=== PATIENT | male | born 1970 | race African-American/Black ===

== ENCOUNTER 2016-10-22 13:08 | Emergency (ER) | payer MEDICAID, OTHER ==
[2016-10-22 15:15] LABS: MEAN CORPUSCULAR HEMOGLOBIN 31.6 pg (27.0-33.0); MEAN CORPUSCULAR HGB CONC 30.7 g/dl (32.0-36.5); MEAN CORPUSCULAR VOLUME 103.1 fl (80.0-96.0); RED CELL DISTRIBUTION WIDTH 13.4 % (11.5-14.5); WHITE BLOOD COUNT 10.2 K/mm3 (4.0-10.0)
[2016-10-22 15:32] LABS: ANION GAP 6 MEQ/L (8-16); BLOOD UREA NITROGEN 10 MG/DL (7-18); CARBON DIOXIDE LEVEL 30 MEQ/L (21-32); CHLORIDE LEVEL 110 MEQ/L (98-107); GLOMERULAR FILTRATION RATE > 60.0 (>60); GLUCOSE, FASTING 123 MG/DL (70-105); MAGNESIUM LEVEL 2.4 MG/DL (1.8-2.4); POTASSIUM SERUM 3.8 MEQ/L (3.5-5.1); SODIUM LEVEL 146 MEQ/L (136-145); T UPTAKE 35 % (33-40); THYROXINE (T4) 8.4 UG/DL (4.5-12.0)
--- NOTE | 2016-10-22 15:48 | REP ---
PA and lateral chest radiograph 10/22 17 Indication peripheral edema, hypertension Comparison made with PA and lateral chest 12/25/2012 at [facility] Findings: Cardiomediastinal silhouette is normal. Lungs are clear bilaterally. Bones and soft tissues are within normal limits. Impression no acute cardiopulmonary process or interval change Signed by Kathie Mccall MD 10/22/2016 03:39 P
--- NOTE | 2016-10-22 16:11 | EDDOCDS ---
Physician Documentation [facility] Name: Tom Baldwin Age: 46 yrs Sex: Male : 1970 Arrival Date: 10/22/2016 Time: 13:08 Bed 15 Private MD: No Pcp Disposition: 10/22/16 15:56 Discharged to Home/Self Care. Impression: Edema, not elsewhere classified - bilateral lower extremities. - Condition is Stable. - Prescriptions for Hydrochlorothiazide 25 mg Oral Tablet - take 1 tablet by ORAL route once daily for 5 days; 5 tablet. - Medication Reconciliation, Local Pharmacy Hours form. - Follow up: [facility]; When: Call to arrange an appointment; Reason: Recheck today's complaints, Continuance of care. - Problem is new. - Symptoms are unchanged. - Notes: Return to the ED for worsening swelling, chest pain, shortness of breath or any other concerns Historical: - Allergies: no known allergies; - Home Meds: 1. Vitamin D Oral ran out a while ago - PMHx: none; - PSHx: Hernia repair; shoulder (right); - Social history: Smoking status: Patient uses tobacco products, current every day smoker. No barriers to communication noted, The patient speaks fluent Prydeinig, Speaks appropriately for age. - Family history: Not pertinent. - : The pt / caregiver states he / she is not on anticoagulants. Home medication list is obtained from the patient. - Exposure Risk Screening:: None identified. Vital Signs: 10/22 13:12 BP 176 / 105 LA Sitting (auto/lg); Pulse 93; Resp 18 S; Temp 97.8(O); Pulse Ox 97% on mt4 R/A; Weight 108.86 kg / 240 lbs (R); Height 5 ft. 7 in. (170.18 cm) (R); Pain 4/10; 13:12 BP 205 / 108 RA Sitting (auto/lg); mt4 14:07 BP 178 / 88 (auto/); mb9 14:09 BP 178 / 82 LA Supine (man/lg); mb9 14:09 Pulse 86 MON; Pulse Ox 93% ; mb9 14:36 BP 182 / 86 (auto/); dsf 14:37 Pulse 82 MON; Pulse Ox 96% ; dsf 15:06 BP 187 / 91 (auto/); dsf 15:07 Pulse 82 MON; Pulse Ox 94% ; dsf 15:36 BP 176 / 83 (auto/); dsf 15:36 Pulse 80 MON; Pulse Ox 95% ; dsf 16:09 BP 170 / 80 (man/); Pulse 70; Resp 18; Temp 98.5(TE); Pulse Ox 96% on R/A; Pain 7/10; dsf 13:12 Body Mass Index 37.59 (108.86 kg, 170.18 cm) mt4 MDM: 14:05 Misc. Nursing Order ordered. le 14:06 Chest, 2 View (pa\E\lat) Ordered. EDMS 14:19 CBC Ordered. EDMS 14:19 BMP Ordered. EDMS 14:19 Magnesium Level Ordered. EDMS 14:19 Thyroid Profile Ordered. EDMS 14:19 UA Ordered. EDMS 14:19 ECG WITH READING ER PHYS+CARDIAG ordered. EDMS 14:24 Financial registration complete. mpb 14:27 Undo -Financial registration. mpb 14:27 Financial registration complete. lg 14:39 [facility] [place] Agreement was scanned into [employer] and attached to record. lg 15:52 CBC Reviewed. le 15:52 BMP Reviewed. le 15:52 UA Reviewed. le 15:52 Magnesium Level Reviewed. le 15:52 Thyroid Profile Reviewed. le Signatures: Dispatcher MedHost Avery Adam, Reg Reg lg Ameena Rosa,RN RN kr3 Sharmin Klein, BLOCK FEEDER BLOCK FEEDER Anna Pickard,RN RN dsf Robert Swain, Reg Reg mpb The chart was reviewed and I authenticate all verbal orders and agree with the evaluation and treatment provided.Attachments: 14:39 [facility] Payment Agreement lg MTDD
--- NOTE | 2016-10-22 16:11 | EDDOCDS ---
Nurse's Notes [facility] Name: Tom Baldwin Age: 46 yrs Sex: Male : 1970 Arrival Date: 10/22/2016 Time: 13:08 Bed 15 Private MD: No Pcp Diagnosis: Edema, not elsewhere classified-bilateral lower extremities Presentation: 10/22 13:19 Presenting complaint: Patient states: woke this AM with swollen feet. Reports has had kr3 swollen feet previously but not as severe. Started back to gym last week in attempt to loose weight. States no idea that had elevated blood pressure. Adult Sepsis Screening: The patient does not have new or worsening altered mentation. Patient's respiratory rate is less than 22. Systolic blood pressure is greater than 100. Patient has a qSOFA score of 0- Negative Sepsis Screen. Suicide/Homicide risk assessment- the patient denies having any suicidal and/or homicidal ideations and does not present with any other emotional, behavioral or mental health complaints. 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 Transition of care: patient was not received from another setting of care. 13:19 Acuity: JUDIT Level 3 kr3 13:19 Method Of Arrival: Walkin/Carried/Asstd kr3 Triage Assessment: 13:22 General: Appears in no apparent distress, comfortable, Behavior is cooperative. Pain: kr3 Location: chronic back pain Pain currently is 7 out of 10 on a pain scale. Pt Declines HIV testing. Neurological: Level of Consciousness is awake, alert. Respiratory: Respiratory effort is even, unlabored, Denies shortness of breath. Derm: Skin is normal, Reports swelling to both feet. Historical: - Allergies: no known allergies; - Home Meds: 1. Vitamin D Oral ran out a while ago - PMHx: none; - PSHx: Hernia repair; shoulder (right); - Social history: Smoking status: Patient uses tobacco products, current every day smoker. No barriers to communication noted, The patient speaks fluent Bolivian, Speaks appropriately for age. - Family history: Not pertinent. - : The pt / caregiver states he / she is not on anticoagulants. Home medication list is obtained from the patient. - Exposure Risk Screening:: None identified. Screenin:05 Screening information is obtained from the patient. Fall risk: No risks identified. dsf Assistance ADL's: requires no assistance with activities of daily living. Abuse/DV Screen: The patient / caregiver reports he/she is: not in a situation that causes fear, pain or injury. Nutritional screening: No deficits noted. Advance Directives: Currently, there is no health care proxy. home support is adequate. Assessment: 14:10 General: Appears to be sleeping. Behavior is appropriate for age, cooperative. Pain: mb9 Denies pain. Neurological: Level of Consciousness is alert, Oriented to person, place, time. Neurological: pt appears to fall asleep quickly when not engaged. pt reports, "I have sleep apnea and I don't sleep very well at night". . Cardiovascular: Heart tones S1 S2 present Edema is 1+ to left ankle, left foot, right ankle and right foot Pulses are all present. Rhythm is sinus rhythm No ectopy. Chest pain is denied. Respiratory: Airway is patent Respiratory effort is even, unlabored. 15:27 Adult Sepsis Screening: The patient does not have new or worsening altered mentation. dsf Patient's respiratory rate is less than 22. Systolic blood pressure is greater than 100. Patient has a qSOFA score of 0- Negative Sepsis Screen. General: Appears in no apparent distress, comfortable, Behavior is appropriate for age, cooperative. General: Appears in no apparent distress, comfortable, Behavior is appropriate for age, cooperative. Pain: Location: low back and right shoulder Pain currently is 7 out of 10 on a pain scale. Quality of pain is described as aching. Neurological: Level of Consciousness is awake, alert, Oriented to person, place, time. Cardiovascular: Capillary refill < 3 seconds Heart tones S1 S2 present Rhythm is sinus rhythm No ectopy. Chest pain is denied. Respiratory: Airway is patent Respiratory effort is even, unlabored, Respiratory pattern is regular, symmetrical, Breath sounds are clear bilaterally. GI: Abdomen is obese, Bowel sounds present X 4 quads. Abd is soft and non tender X 4 quads. Derm: Skin is pink, warm & dry. 16:06 General: Appears in no apparent distress, comfortable. Neurological: Level of dsf Consciousness is awake, alert. Cardiovascular: Capillary refill < 3 seconds. Respiratory: Airway is patent Respiratory effort is even, unlabored, Respiratory pattern is regular, symmetrical. Derm: Skin is pink, warm & dry. Vital Signs: 13:12 BP 176 / 105 LA Sitting (auto/lg); Pulse 93; Resp 18 S; Temp 97.8(O); Pulse Ox 97% on mt4 R/A; Weight 108.86 kg (R); Height 5 ft. 7 in. (170.18 cm) (R); Pain 4/10; 13:12 BP 205 / 108 RA Sitting (auto/lg); mt4 14:07 BP 178 / 88 (auto/); mb9 14:09 BP 178 / 82 LA Supine (man/lg); mb9 14:09 Pulse 86 MON; Pulse Ox 93% ; mb9 14:36 BP 182 / 86 (auto/); dsf 14:37 Pulse 82 MON; Pulse Ox 96% ; dsf 15:06 BP 187 / 91 (auto/); dsf 15:07 Pulse 82 MON; Pulse Ox 94% ; dsf 15:36 BP 176 / 83 (auto/); dsf 15:36 Pulse 80 MON; Pulse Ox 95% ; dsf 16:09 BP 170 / 80 (man/); Pulse 70; Resp 18; Temp 98.5(TE); Pulse Ox 96% on R/A; Pain 7/10; dsf 13:12 Body Mass Index 37.59 (108.86 kg, 170.18 cm) mt4 Vitals: 13:12 Log In Time: October 22, 2016 at 13:08. mt4 ED Course: 13:10 Patient visited by Loretta Lloyd. mt4 13:10 Patient moved to Waiting mt4 13:11 No Pcp is Private Physician. mt4 13:14 Patient moved to Pre RCE mt4 13:20 Triage Initiated kr3 13:35 Joanie Ashton,RN is Primary Nurse. dsf 13:35 Nory Vences, VERO is Primary Nurse. dsf 13:35 Patient moved to 15 dsf 14:04 Sharmin Klein FNP is PHCP. le 14:12 Patient visited by Robert Quintanilla RN. mb9 14:19 Patient visited by Sharmin Klein FNP. le 14:19 Patient visited by Sharmin Klein FNP. le 14:24 Patient moved to Radiology dsf 14:27 Patient moved to 15 dsf 14:39 Patient name changed from Tom\\S\\\\S\\Denny\\S\\ to Tom\\S\\ \\S\\Denny. EDMS 14:39 [facility] Payment Agreement was scanned into [employer] and attached to record. lg 14:40 EKG done. (by ED staff). Reviewed by Sharmin WILLIS. ct3 14:41 Patient visited by Kaylah Hu PCA. ct3 15:00 UA Sent. tk 15:28 Patient visited by Anna Ralph RN. dsf 15:56 [facility] is Referral Physician. le 16:05 The patient / caregiver is instructed regarding the plan of care and ED course. dsf 16:05 No IV's were initiated during this patient's visit. No procedures done that require dsf assistance. Order Results: Lab Order: CBC; SPEC'M 10/22/16 14:51 Test: WHITE BLOOD COUNT; Value: 10.2; Range: 4.0-10.0; Abnormal: Above high normal; Units: K/mm3; Status: F Test: RED BLOOD COUNT; Value: 4.59; Range: 4.30-6.10; Units: M/mm3; Status: F Test: HEMOGLOBIN; Value: 14.5; Range: 14.0-18.0; Units: g/dl; Status: F Test: HEMATOCRIT; Value: 47.3; Range: 42.0-52.0; Units: %; Status: F Test: MEAN CORPUSCULAR VOLUME; Value: 103.1; Range: 80.0-96.0; Abnormal: Above high normal; Units: fl; Status: F Test: MEAN CORPUSCULAR HEMOGLOBIN; Value: 31.6; Range: 27.0-33.0; Units: pg; Status: F Test: MEAN CORPUSCULAR HGB CONC; Value: 30.7; Range: 32.0-36.5; Abnormal: Below low normal; Units: g/dl; Status: F Test: RED CELL DISTRIBUTION WIDTH; Value: 13.4; Range: 11.5-14.5; Units: %; Status: F Test: PLATELET COUNT, AUTOMATED; Value: 198; Range: 150-450; Units: k/mm3; Status: F Lab Order: BMP; SPEC'M 10/22/16 14:51 Test: GLUCOSE, FASTING; Value: 123; Range: 70-105; Abnormal: Above high normal; Units: MG/DL; Status: F Test: BLOOD UREA NITROGEN; Value: 10; Range: 7-18; Units: MG/DL; Status: F Test: CREATININE FOR GFR; Value: 1.10; Range: 0.70-1.30; Units: MG/DL; Status: F Test: GLOMERULAR FILTRATION RATE; Value: > 60.0; Range: >60; Status: F Test: SODIUM LEVEL; Value: 146; Range: 136-145; Abnormal: Above high normal; Units: MEQ/L; Status: F Test: POTASSIUM SERUM; Value: 3.8; Range: 3.5-5.1; Units: MEQ/L; Status: F Test: CHLORIDE LEVEL; Value: 110; Range: 98-107; Abnormal: Above high normal; Units: MEQ/L; Status: F Test: CARBON DIOXIDE LEVEL; Value: 30; Range: 21-32; Units: MEQ/L; Status: F Test: ANION GAP; Value: 6; Range: 8-16; Abnormal: Below low normal; Units: MEQ/L; Status: F Test: CALCIUM LEVEL; Value: 8.0; Range: 8.5-10.1; Abnormal: Below low normal; Units: MG/DL; Status: F Test Note: ; Units are mL/min/1.73 m2 Chronic Kidney Disease Staging per NKF: Stage I & II GFR >=60 Normal to Mildly Decreased Stage III GFR 30-59 Moderately Decreased Stage IV GFR 15-29 Severely Decreased Stage V GFR <15 Very Little GFR Left ESRD GFR <15 on DIRECTOR OF PERSONNEL Lab Order: Magnesium Level; SPEC'M 10/22/16 14:51 Test: MAGNESIUM LEVEL; Value: 2.4; Range: 1.8-2.4; Units: MG/DL; Status: F Lab Order: Thyroid Profile; SPEC'M 10/22/16 14:51 Test: T UPTAKE; Value: 35; Range: 33-40; Units: %; Status: F Test: THYROXINE (T4); Value: 8.4; Range: 4.5-12.0; Units: UG/DL; Status: F Test: FREE THYROXINE INDEX; Value: 2.9; Range: 1.4-3.8; Units: %; Status: F Test: THYROID STIMULATING HORMONE; Value: 0.715; Range: 0.358-3.740; Units: uIU/ML; Status: F Lab Order: UA; SPEC'M 10/22/16 14:57 Test: APPEARANCE, URINE; Value: CLEAR; Range: CLEAR; Status: F Test: COLOR, URINE; Value: YELLOW; Range: YELLOW; Status: F Test: PH,URINE; Value: 5.0; Range: 5.0-9.0; Units: UNITS; Status: F Test: SPECIFIC GRAVITY URINE AUTO; Value: 1.025; Range: 1.002-1.035; Status: F Test: PROTEIN, URINE AUTO; Value: 1+; Range: NEGATIVE; Abnormal: Above high normal; Units: mg/dL; Status: F Test: GLUCOSE, URINE (UA) AUTO; Value: NEGATIVE; Range: NEGATIVE; Units: mg/dL; Status: F Test: KETONE, URINE AUTO; Value: TRACE; Range: NEGATIVE; Abnormal: Above high normal; Units: mg/dL; Status: F Test: UROBILINOGEN, URINE AUTO; Value: 4.0; Range: 0.0-2.0; Abnormal: Above high normal; Units: mg/dL; Status: F Test: BILIRUBIN, URINE AUTO; Value: NEGATIVE; Range: NEGATIVE; Status: F Test: NITRITE, URINE AUTO; Value: NEGATIVE; Range: NEGATIVE; Status: F Test: LEUKOCYTE ESTERASE, URINE AUTO; Value: 1+; Range: NEGATIVE; Abnormal: Above high normal; Status: F Test: BLOOD, URINE BLOOD; Value: 2+; Range: NEGATIVE; Abnormal: Above high normal; Status: F Test: WBC, URINE AUTO; Value: 12; Range: 0-3; Abnormal: Above high normal; Units: /HPF; Status: F Test: RBC, URINE AUTO; Value: 11; Range: 0-3; Abnormal: Above high normal; Units: /HPF; Status: F Test: BACTERIA, URINE AUTO; Value: 1+; Range: NEGATIVE; Abnormal: Above high normal; Status: F Test: SQUAMOUS EPITHELIAL CELL UR AU; Value: 1; Range: 0-6; Units: /HPF; Status: F Test: MUCUS, URINE; Value: SMALL; Range: NEGATIVE; Status: F Test: HYALINE CAST, URINE AUTO; Value: 0; Range: 0-1; Units: /LPF; Status: F Outcome: 15:56 Discharge ordered by Provider. le 16:05 Discharge Assessment: Patient awake, alert and oriented x 3. No cognitive and/or dsf functional deficits noted. Patient verbalized understanding of disposition instructions. patient administered narcotics - no. The following High Risk Discharge criteria are identified: None. Discharged to home ambulatory. Condition: stable. Discharge instructions given to patient, Instructed on discharge instructions, follow up and referral plans. medication usage, Demonstrated understanding of instructions, medications, Pt was receptive of discharge instructions/ teaching. Prescriptions given X 1. No special radiology studies were completed. Property sent home with patient. 16:09 Patient left the ED. dsf Signatures: Dispatcher MedHost EDMS Avery Nassar, Reg Reg lg Ameena Rosa,RN RN kr3 Sharmin Klein, COMMUNICATION COORDINATOR COMMUNICATION COORDINATOR Loretta Chavis mt4 Kaylah Hu, ASSISTANT ANALYST ASSISTANT ANALYST ct3 Anna Ralph RN RN dsf Robert Quintanilla,RN RN mb9 Shayne Hartley Corrections: (The following items were deleted from the chart) 13:24 13:19 Presenting complaint: Patient states: woke this AM with swollen feet. Reports has kr3 had swollen feet previously but not as severe. kr3 MTDD
--- NOTE | 2016-10-23 07:16 | ECGEPIP ---
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
--- NOTE | 2016-10-24 17:11 | EDDOCDS ---
Physician Documentation [facility] Name: Tom Baldwin Age: 46 yrs Sex: Male : 1970 Arrival Date: 10/22/2016 Time: 13:08 Bed 15 Private MD: No Pcp Disposition: 10/22/16 15:56 Discharged to Home/Self Care. Impression: Edema, not elsewhere classified - bilateral lower extremities. - Condition is Stable. - Prescriptions for Hydrochlorothiazide 25 mg Oral Tablet - take 1 tablet by ORAL route once daily for 5 days; 5 tablet. - Medication Reconciliation, Local Pharmacy Hours form. - Follow up: [facility]; When: Call to arrange an appointment; Reason: Recheck today's complaints, Continuance of care. - Problem is new. - Symptoms are unchanged. - Notes: Return to the ED for worsening swelling, chest pain, shortness of breath or any other concerns Historical: - Allergies: no known allergies; - Home Meds: 1. Vitamin D Oral ran out a while ago - PMHx: none; - PSHx: Hernia repair; shoulder (right); - Social history: Smoking status: Patient uses tobacco products, current every day smoker. No barriers to communication noted, The patient speaks fluent Rwandan, Speaks appropriately for age. - Family history: Not pertinent. - : The pt / caregiver states he / she is not on anticoagulants. Home medication list is obtained from the patient. - Exposure Risk Screening:: None identified. Vital Signs: 10/22 13:12 BP 176 / 105 LA Sitting (auto/lg); Pulse 93; Resp 18 S; Temp 97.8(O); Pulse Ox 97% on mt4 R/A; Weight 108.86 kg / 240 lbs (R); Height 5 ft. 7 in. (170.18 cm) (R); Pain 4/10; 13:12 BP 205 / 108 RA Sitting (auto/lg); mt4 14:07 BP 178 / 88 (auto/); mb9 14:09 BP 178 / 82 LA Supine (man/lg); mb9 14:09 Pulse 86 MON; Pulse Ox 93% ; mb9 14:36 BP 182 / 86 (auto/); dsf 14:37 Pulse 82 MON; Pulse Ox 96% ; dsf 15:06 BP 187 / 91 (auto/); dsf 15:07 Pulse 82 MON; Pulse Ox 94% ; dsf 15:36 BP 176 / 83 (auto/); dsf 15:36 Pulse 80 MON; Pulse Ox 95% ; dsf 16:09 BP 170 / 80 (man/); Pulse 70; Resp 18; Temp 98.5(TE); Pulse Ox 96% on R/A; Pain 7/10; dsf 13:12 Body Mass Index 37.59 (108.86 kg, 170.18 cm) mt4 MDM: 14:05 Misc. Nursing Order ordered. le 14:06 Chest, 2 View (pa\E\lat) Ordered. EDMS 14:19 CBC Ordered. EDMS 14:19 BMP Ordered. EDMS 14:19 Magnesium Level Ordered. EDMS 14:19 Thyroid Profile Ordered. EDMS 14:19 UA Ordered. EDMS 14:19 ECG WITH READING ER PHYS+CARDIAG ordered. EDMS 14:24 Financial registration complete. mpb 14:27 Undo -Financial registration. mpb 14:27 Financial registration complete. 14:39 [facility] Payment Agreement was scanned into [employer] and attached to record. lg 15:52 CBC Reviewed. le 15:52 BMP Reviewed. le 15:52 UA Reviewed. le 15:52 Magnesium Level Reviewed. le 15:52 Thyroid Profile Reviewed. le 22:22 T-Sheet-- Draft Copy was scanned into K[employer] and attached to record. [facility] 10/23 10:48 ECG/EKG was scanned into K[employer] and attached to record. gb Signatures: Dispatcher MedHost EDMS Gena Stone, Reg Reg gb Avery Nassar, Reg Reg lg Ameena Rosa,RN RN kr3 Sharmin Klein, ANALYZER SALES ANALYZER SALES Anna Pickard,RN RN dsf Robert Swain, Reg Reg mpb Barbara Rios The chart was reviewed and I authenticate all verbal orders and agree with the evaluation and treatment provided.Attachments: 10/22 14:39 [facility] Payment Agreement lg 22:22 T-Sheet-- Draft Copy [facility] 10/23 10:48 ECG/EKG gb Chart Complete MTDD
--- NOTE | 2016-10-24 17:11 | EDDOCDS ---
Physician Documentation [facility] Name: Tom Baldwin Age: 46 yrs Sex: Male : 1970 Arrival Date: 10/22/2016 Time: 13:08 Bed 15 Private MD: No Pcp Disposition: 10/22/16 15:56 Discharged to Home/Self Care. Impression: Edema, not elsewhere classified - bilateral lower extremities. - Condition is Stable. - Prescriptions for Hydrochlorothiazide 25 mg Oral Tablet - take 1 tablet by ORAL route once daily for 5 days; 5 tablet. - Medication Reconciliation, Local Pharmacy Hours form. - Follow up: [facility] [place]; When: Call to arrange an appointment; Reason: Recheck today's complaints, Continuance of care. - Problem is new. - Symptoms are unchanged. - Notes: Return to the ED for worsening swelling, chest pain, shortness of breath or any other concerns Historical: - Allergies: no known allergies; - Home Meds: 1. Vitamin D Oral ran out a while ago - PMHx: none; - PSHx: Hernia repair; shoulder (right); - Social history: Smoking status: Patient uses tobacco products, current every day smoker. No barriers to communication noted, The patient speaks fluent Sao Tomean, Speaks appropriately for age. - Family history: Not pertinent. - : The pt / caregiver states he / she is not on anticoagulants. Home medication list is obtained from the patient. - Exposure Risk Screening:: None identified. Vital Signs: 10/22 13:12 BP 176 / 105 LA Sitting (auto/lg); Pulse 93; Resp 18 S; Temp 97.8(O); Pulse Ox 97% on mt4 R/A; Weight 108.86 kg / 240 lbs (R); Height 5 ft. 7 in. (170.18 cm) (R); Pain 4/10; 13:12 BP 205 / 108 RA Sitting (auto/lg); mt4 14:07 BP 178 / 88 (auto/); mb9 14:09 BP 178 / 82 LA Supine (man/lg); mb9 14:09 Pulse 86 MON; Pulse Ox 93% ; mb9 14:36 BP 182 / 86 (auto/); dsf 14:37 Pulse 82 MON; Pulse Ox 96% ; dsf 15:06 BP 187 / 91 (auto/); dsf 15:07 Pulse 82 MON; Pulse Ox 94% ; dsf 15:36 BP 176 / 83 (auto/); dsf 15:36 Pulse 80 MON; Pulse Ox 95% ; dsf 16:09 BP 170 / 80 (man/); Pulse 70; Resp 18; Temp 98.5(TE); Pulse Ox 96% on R/A; Pain 7/10; dsf 13:12 Body Mass Index 37.59 (108.86 kg, 170.18 cm) mt4 MDM: 14:05 Misc. Nursing Order ordered. le 14:06 Chest, 2 View (pa\E\lat) Ordered. EDMS 14:19 CBC Ordered. EDMS 14:19 BMP Ordered. EDMS 14:19 Magnesium Level Ordered. EDMS 14:19 Thyroid Profile Ordered. EDMS 14:19 UA Ordered. EDMS 14:19 ECG WITH READING ER PHYS+CARDIAG ordered. EDMS 14:24 Financial registration complete. mpb 14:27 Undo -Financial registration. mpb 14:27 Financial registration complete. 14:39 [facility] Payment Agreement was scanned into [employer] and attached to record. lg 15:52 CBC Reviewed. le 15:52 BMP Reviewed. le 15:52 UA Reviewed. le 15:52 Magnesium Level Reviewed. le 15:52 Thyroid Profile Reviewed. le 22:22 T-Sheet-- Draft Copy was scanned into [employer] and attached to record. [facility] 10/23 10:48 ECG/EKG was scanned into [employer] and attached to record. gb Signatures: Dispatcher MedHost EDMS Gena Stone, Reg Reg gb Avery Nassar, Reg Reg lg Ameena Rosa,RN RN kr3 Sharmin Klein, APPLICATIONS ENGINEER APPLICATIONS ENGINEER Anna Pickard,RN RN dsf Robert Swain, Reg Reg mpb Barbara Rios The chart was reviewed and I authenticate all verbal orders and agree with the evaluation and treatment provided.Attachments: 10/22 14:39 [facility] Payment Agreement lg 22:22 T-Sheet-- Draft Copy [facility] 10/23 10:48 ECG/EKG gb Chart Complete MTDD
--- NOTE | 2016-10-24 17:12 | EDDOCDS ---
Nurse's Notes [facility] Name: Daja Abdul Age: 46 yrs Sex: Male : 1970 Arrival Date: 10/22/2016 Time: 13:08 Bed 15 Private MD: No Pcp Diagnosis: Edema, not elsewhere classified-bilateral lower extremities Presentation: 10/22 13:19 Presenting complaint: Patient states: woke this AM with swollen feet. Reports has had kr3 swollen feet previously but not as severe. Started back to gym last week in attempt to loose weight. States no idea that had elevated blood pressure. Adult Sepsis Screening: The patient does not have new or worsening altered mentation. Patient's respiratory rate is less than 22. Systolic blood pressure is greater than 100. Patient has a qSOFA score of 0- Negative Sepsis Screen. Suicide/Homicide risk assessment- the patient denies having any suicidal and/or homicidal ideations and does not present with any other emotional, behavioral or mental health complaints. 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 Transition of care: patient was not received from another setting of care. 13:19 Acuity: JUDIT Level 3 kr3 13:19 Method Of Arrival: Walkin/Carried/Asstd kr3 Triage Assessment: 13:22 General: Appears in no apparent distress, comfortable, Behavior is cooperative. Pain: kr3 Location: chronic back pain Pain currently is 7 out of 10 on a pain scale. Pt Declines HIV testing. Neurological: Level of Consciousness is awake, alert. Respiratory: Respiratory effort is even, unlabored, Denies shortness of breath. Derm: Skin is normal, Reports swelling to both feet. Historical: - Allergies: no known allergies; - Home Meds: 1. Vitamin D Oral ran out a while ago - PMHx: none; - PSHx: Hernia repair; shoulder (right); - Social history: Smoking status: Patient uses tobacco products, current every day smoker. No barriers to communication noted, The patient speaks fluent Algerian, Speaks appropriately for age. - Family history: Not pertinent. - : The pt / caregiver states he / she is not on anticoagulants. Home medication list is obtained from the patient. - Exposure Risk Screening:: None identified. Screenin:05 Screening information is obtained from the patient. Fall risk: No risks identified. dsf Assistance ADL's: requires no assistance with activities of daily living. Abuse/DV Screen: The patient / caregiver reports he/she is: not in a situation that causes fear, pain or injury. Nutritional screening: No deficits noted. Advance Directives: Currently, there is no health care proxy. home support is adequate. Assessment: 14:10 General: Appears to be sleeping. Behavior is appropriate for age, cooperative. Pain: mb9 Denies pain. Neurological: Level of Consciousness is alert, Oriented to person, place, time. Neurological: pt appears to fall asleep quickly when not engaged. pt reports, "I have sleep apnea and I don't sleep very well at night". . Cardiovascular: Heart tones S1 S2 present Edema is 1+ to left ankle, left foot, right ankle and right foot Pulses are all present. Rhythm is sinus rhythm No ectopy. Chest pain is denied. Respiratory: Airway is patent Respiratory effort is even, unlabored. 15:27 Adult Sepsis Screening: The patient does not have new or worsening altered mentation. dsf Patient's respiratory rate is less than 22. Systolic blood pressure is greater than 100. Patient has a qSOFA score of 0- Negative Sepsis Screen. General: Appears in no apparent distress, comfortable, Behavior is appropriate for age, cooperative. General: Appears in no apparent distress, comfortable, Behavior is appropriate for age, cooperative. Pain: Location: low back and right shoulder Pain currently is 7 out of 10 on a pain scale. Quality of pain is described as aching. Neurological: Level of Consciousness is awake, alert, Oriented to person, place, time. Cardiovascular: Capillary refill < 3 seconds Heart tones S1 S2 present Rhythm is sinus rhythm No ectopy. Chest pain is denied. Respiratory: Airway is patent Respiratory effort is even, unlabored, Respiratory pattern is regular, symmetrical, Breath sounds are clear bilaterally. GI: Abdomen is obese, Bowel sounds present X 4 quads. Abd is soft and non tender X 4 quads. Derm: Skin is pink, warm & dry. 16:06 General: Appears in no apparent distress, comfortable. Neurological: Level of dsf Consciousness is awake, alert. Cardiovascular: Capillary refill < 3 seconds. Respiratory: Airway is patent Respiratory effort is even, unlabored, Respiratory pattern is regular, symmetrical. Derm: Skin is pink, warm & dry. Vital Signs: 13:12 BP 176 / 105 LA Sitting (auto/lg); Pulse 93; Resp 18 S; Temp 97.8(O); Pulse Ox 97% on mt4 R/A; Weight 108.86 kg (R); Height 5 ft. 7 in. (170.18 cm) (R); Pain 4/10; 13:12 BP 205 / 108 RA Sitting (auto/lg); mt4 14:07 BP 178 / 88 (auto/); mb9 14:09 BP 178 / 82 LA Supine (man/lg); mb9 14:09 Pulse 86 MON; Pulse Ox 93% ; mb9 14:36 BP 182 / 86 (auto/); dsf 14:37 Pulse 82 MON; Pulse Ox 96% ; dsf 15:06 BP 187 / 91 (auto/); dsf 15:07 Pulse 82 MON; Pulse Ox 94% ; dsf 15:36 BP 176 / 83 (auto/); dsf 15:36 Pulse 80 MON; Pulse Ox 95% ; dsf 16:09 BP 170 / 80 (man/); Pulse 70; Resp 18; Temp 98.5(TE); Pulse Ox 96% on R/A; Pain 7/10; dsf 13:12 Body Mass Index 37.59 (108.86 kg, 170.18 cm) mt4 Vitals: 13:12 Log In Time: October 22, 2016 at 13:08. mt4 ED Course: 13:10 Patient visited by Loretta Lloyd. mt4 13:10 Patient moved to Waiting mt4 13:11 No Pcp is Private Physician. mt4 13:14 Patient moved to Pre RCE mt4 13:20 Triage Initiated kr3 13:35 Joanie Ashton,RN is Primary Nurse. dsf 13:35 Nory Vences, VERO is Primary Nurse. dsf 13:35 Patient moved to 15 dsf 14:04 Sharmin Klein FNP is PHCP. le 14:12 Patient visited by Robert Quintanilla RN. mb9 14:19 Patient visited by Sharmin Klein FNP. le 14:19 Patient visited by Sharmin Klein FNP. le 14:24 Patient moved to Radiology dsf 14:27 Patient moved to 15 dsf 14:39 Patient name changed from Daja\\S\\\\S\\Denny\\S\\ to Daja\\S\\ \\S\\Denny. EDMS 14:39 [facility] Payment Agreement was scanned into [employer] and attached to record. lg 14:40 EKG done. (by ED staff). Reviewed by Sharmin WILLIS. ct3 14:41 Patient visited by Kaylah Hu PCA. ct3 15:00 UA Sent. tk 15:28 Patient visited by Anna Ralph RN. dsf 15:56 [facility] is Referral Physician. le 16:05 The patient / caregiver is instructed regarding the plan of care and ED course. dsf 16:05 No IV's were initiated during this patient's visit. No procedures done that require dsf assistance. 16:11 Chest, 2 View (pa\\E\\lat) Returned. EDMS 22:22 T-Sheet-- Draft Copy was scanned into [employer] and attached to record. klr 10/23 07:28 EKG-ADULT Returned. EDMS 10:48 ECG/EKG was scanned into [employer] and attached to record. gb Order Results: Lab Order: CBC; SPEC'M 10/22/16 14:51 Test: WHITE BLOOD COUNT; Value: 10.2; Range: 4.0-10.0; Abnormal: Above high normal; Units: K/mm3; Status: F Test: RED BLOOD COUNT; Value: 4.59; Range: 4.30-6.10; Units: M/mm3; Status: F Test: HEMOGLOBIN; Value: 14.5; Range: 14.0-18.0; Units: g/dl; Status: F Test: HEMATOCRIT; Value: 47.3; Range: 42.0-52.0; Units: %; Status: F Test: MEAN CORPUSCULAR VOLUME; Value: 103.1; Range: 80.0-96.0; Abnormal: Above high normal; Units: fl; Status: F Test: MEAN CORPUSCULAR HEMOGLOBIN; Value: 31.6; Range: 27.0-33.0; Units: pg; Status: F Test: MEAN CORPUSCULAR HGB CONC; Value: 30.7; Range: 32.0-36.5; Abnormal: Below low normal; Units: g/dl; Status: F Test: RED CELL DISTRIBUTION WIDTH; Value: 13.4; Range: 11.5-14.5; Units: %; Status: F Test: PLATELET COUNT, AUTOMATED; Value: 198; Range: 150-450; Units: k/mm3; Status: F Lab Order: BMP; 10/22/16 14:51 Test: GLUCOSE, FASTING; Value: 123; Range: 70-105; Abnormal: Above high normal; Units: MG/DL; Status: F Test: BLOOD UREA NITROGEN; Value: 10; Range: 7-18; Units: MG/DL; Status: F Test: CREATININE FOR GFR; Value: 1.10; Range: 0.70-1.30; Units: MG/DL; Status: F Test: GLOMERULAR FILTRATION RATE; Value: > 60.0; Range: >60; Status: F Test: SODIUM LEVEL; Value: 146; Range: 136-145; Abnormal: Above high normal; Units: MEQ/L; Status: F Test: POTASSIUM SERUM; Value: 3.8; Range: 3.5-5.1; Units: MEQ/L; Status: F Test: CHLORIDE LEVEL; Value: 110; Range: 98-107; Abnormal: Above high normal; Units: MEQ/L; Status: F Test: CARBON DIOXIDE LEVEL; Value: 30; Range: 21-32; Units: MEQ/L; Status: F Test: ANION GAP; Value: 6; Range: 8-16; Abnormal: Below low normal; Units: MEQ/L; Status: F Test: CALCIUM LEVEL; Value: 8.0; Range: 8.5-10.1; Abnormal: Below low normal; Units: MG/DL; Status: F Test Note: ; Units are mL/min/1.73 m2 Chronic Kidney Disease Staging per NKF: Stage I & II GFR >=60 Normal to Mildly Decreased Stage III GFR 30-59 Moderately Decreased Stage IV GFR 15-29 Severely Decreased Stage V GFR <15 Very Little GFR Left ESRD GFR <15 on GEOGRAPHIC INFORMATION SCIENTIST Lab Order: Magnesium Level; 10/22/16 14:51 Test: MAGNESIUM LEVEL; Value: 2.4; Range: 1.8-2.4; Units: MG/DL; Status: F Lab Order: Thyroid Profile; 10/22/16 14:51 Test: T UPTAKE; Value: 35; Range: 33-40; Units: %; Status: F Test: THYROXINE (T4); Value: 8.4; Range: 4.5-12.0; Units: UG/DL; Status: F Test: FREE THYROXINE INDEX; Value: 2.9; Range: 1.4-3.8; Units: %; Status: F Test: THYROID STIMULATING HORMONE; Value: 0.715; Range: 0.358-3.740; Units: uIU/ML; Status: F Lab Order: UA; SPEC'M 10/22/16 14:57 Test: APPEARANCE, URINE; Value: CLEAR; Range: CLEAR; Status: F Test: COLOR, URINE; Value: YELLOW; Range: YELLOW; Status: F Test: PH,URINE; Value: 5.0; Range: 5.0-9.0; Units: UNITS; Status: F Test: SPECIFIC GRAVITY URINE AUTO; Value: 1.025; Range: 1.002-1.035; Status: F Test: PROTEIN, URINE AUTO; Value: 1+; Range: NEGATIVE; Abnormal: Above high normal; Units: mg/dL; Status: F Test: GLUCOSE, URINE (UA) AUTO; Value: NEGATIVE; Range: NEGATIVE; Units: mg/dL; Status: F Test: KETONE, URINE AUTO; Value: TRACE; Range: NEGATIVE; Abnormal: Above high normal; Units: mg/dL; Status: F Test: UROBILINOGEN, URINE AUTO; Value: 4.0; Range: 0.0-2.0; Abnormal: Above high normal; Units: mg/dL; Status: F Test: BILIRUBIN, URINE AUTO; Value: NEGATIVE; Range: NEGATIVE; Status: F Test: NITRITE, URINE AUTO; Value: NEGATIVE; Range: NEGATIVE; Status: F Test: LEUKOCYTE ESTERASE, URINE AUTO; Value: 1+; Range: NEGATIVE; Abnormal: Above high normal; Status: F Test: BLOOD, URINE BLOOD; Value: 2+; Range: NEGATIVE; Abnormal: Above high normal; Status: F Test: WBC, URINE AUTO; Value: 12; Range: 0-3; Abnormal: Above high normal; Units: /HPF; Status: F Test: RBC, URINE AUTO; Value: 11; Range: 0-3; Abnormal: Above high normal; Units: /HPF; Status: F Test: BACTERIA, URINE AUTO; Value: 1+; Range: NEGATIVE; Abnormal: Above high normal; Status: F Test: SQUAMOUS EPITHELIAL CELL UR AU; Value: 1; Range: 0-6; Units: /HPF; Status: F Test: MUCUS, URINE; Value: SMALL; Range: NEGATIVE; Status: F Test: HYALINE CAST, URINE AUTO; Value: 0; Range: 0-1; Units: /LPF; Status: F Radiology Order: Chest, 2 View (pa\\E\\lat) Test: Chest, 2 View (pa\\E\\lat) REASON FOR EXAMINATION: periph edema, HTN; PA and lateral chest radiograph 10/22 17; ; Indication peripheral edema, hypertension; ; Comparison made with PA and lateral chest 12/25/2012 at [facility]; ; Findings: Cardiomediastinal silhouette is normal. 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 le 16:05 Discharge Assessment: Patient awake, alert and oriented x 3. No cognitive and/or dsf functional deficits noted. Patient verbalized understanding of disposition instructions. patient administered narcotics - no. The following High Risk Discharge criteria are identified: None. Discharged to home ambulatory. Condition: stable. Discharge instructions given to patient, Instructed on discharge instructions, follow up and referral plans. medication usage, Demonstrated understanding of instructions, medications, Pt was receptive of discharge instructions/ teaching. Prescriptions given X 1. No special radiology studies were completed. Property sent home with patient. 16:09 Patient left the ED. dsf Signatures: Dispatcher [employer] EDMS Gena Stone, Reg Reg gb Avery Nassar, Reg Reg lg Ameena Rosa,RN RN kr3 Sharmin Klein, PODIATRY TEACHER PODIATRY TEACHER cecily Lloyd, Loretta mt4 Kaylah Hu, CHURCH OFFICIAL CHURCH OFFICIAL ct3 Anna Ralph RN RN dsf Robert Quintanilla RN RN mb9 Shayne Hartley Kathie klr Corrections: (The following items were deleted from the chart) 13:24 13:19 Presenting complaint: Patient states: woke this AM with swollen feet. Reports has kr3 had swollen feet previously but not as severe. kr3 Chart Complete MTDD
== END 2016-10-22 16:09 | disposition home or self-care (01) ==
LOC: M ED 13:08
DX: R60.0 Localized edema (principal); F17.210 Nicotine dependence, cigarettes, uncomplicated

== ENCOUNTER 2019-02-25 12:26 | Emergency (ER) | payer OTHER ==
[~2019-02-25] VITALS: Ht 172.7 cm; Wt 136.2 kg
[2019-02-25 12:27] VITALS: BP 161/83
[2019-02-25] MEDS ORDERED: LISI40TA PO (12:41)
[2019-02-25] MEDS ORDERED: AMLO10TA5 PO (12:41)
[2019-02-25] MEDS ORDERED: CARV12.5 PO (12:41)
--- NOTE | 2019-02-25 13:38 | REP ---
Clinical: Acute chest pain . Comparison: 10/22/2016 . Technique: PA and lateral. Findings: The mediastinum and cardiac silhouette are normal. The lung arellano are clear and without acute consolidation, effusion, or pneumothorax. The skeletal structures are intact and normal. Impression: 1. No acute cardiopulmonary process. Electronically Signed by Casey Nicholson MD 02/25/2019 01:30 P
[2019-02-25] MEDS ORDERED: FUROSEMIDE 40 MG TAB PO ONE (14:00)
[2019-02-25 14:03] LABS: BASO # 0.1 10^3/uL (0.0-0.2); BASO % 0.6 % (0.0-1.0); EOS # 0.3 10^3/uL (0.0-0.50); EOS % 2.5 % (0.0-3.0); HEMATOCRIT 44.5 % (42.0-52.0); HEMOGLOBIN 14.7 g/dl (13.5-17.5); LYMPH # 4.2 10^3/uL (1.5-4.5); MEAN CORPUSCULAR HEMOGLOBIN 31.9 pg (27.0-33.0); MEAN CORPUSCULAR VOLUME 96.5 fl (80.0-96.0); MONO # 1.2 10^3/uL (0.0-0.8); NEUTROPHILS # 7.2 10^3/uL (1.8-7.7); NEUTROPHILS % 54.9 % (36.0-66.0); PLATELET COUNT, AUTOMATED 260 10^3/uL (150-450); RED BLOOD COUNT 4.61 10^6/uL (4.30-6.10); WHITE BLOOD COUNT 13.1 10^3/uL (4.0-10.0)
[2019-02-25 14:34] LABS: ALBUMIN 3.5 GM/DL (3.2-5.2); ALT/SGPT 14 U/L (12-78); BILIRUBIN,TOTAL 0.3 MG/DL (0.2-1.0); BLOOD UREA NITROGEN 11 MG/DL (7-18); CALCIUM LEVEL 8.3 MG/DL (8.5-10.1); CARBON DIOXIDE LEVEL 29 MEQ/L (21-32); CHLORIDE LEVEL 109 MEQ/L (98-107); CREATININE FOR GFR 0.98 MG/DL (0.70-1.30); GLOMERULAR FILTRATION RATE > 60.0 (>60); GLUCOSE, FASTING 92 MG/DL (70-100); NT-PRO BNP 16 PG/ML (<125); POTASSIUM SERUM 3.7 MEQ/L (3.5-5.1); SODIUM LEVEL 144 MEQ/L (136-145); TOTAL PROTEIN 7.1 GM/DL (6.4-8.2)
[2019-02-25] MEDS ORDERED: LASI20TA3 PO (14:53)
== END 2019-02-25 14:55 | disposition left against medical advice (07) ==
LOC: M ED 12:26
DX: I10 Essential (primary) hypertension (principal); R60.0 Localized edema; Z79.899 Other long term (current) drug therapy; F17.210 Nicotine dependence, cigarettes, uncomplicated

== ENCOUNTER 2019-11-10 03:04 | Emergency (ER) | payer OTHER ==
[~2019-11-10] VITALS: Ht 170.2 cm; Wt 122.7 kg
[~2019-11-10 03:04] MED LIST: AMLO10TA5 PO; CARV12.5 PO; LASI20TA3 PO; LISI40TA PO
[2019-11-10] MEDS ORDERED: IBUPROFEN 800 MG TAB PO ONE (06:30)
[2019-11-10] MEDS ORDERED: ACETAMINOPHEN 325 MG TAB PO ONE (06:30)
[2019-11-10 07:01] VITALS: BP 149/80
--- NOTE | 2019-11-10 07:51 | REP ---
Clinical: Pain. Fall. Technique: Neutral and frog lateral views of the right hip. Findings: Generalized age-related changes are appreciated. No acute fracture or dislocation. The surrounding soft tissues are unremarkable. Impression: No acute fracture or dislocation. Electronically Signed by Casey Nicholson MD 11/10/2019 07:42 A
== END 2019-11-10 07:02 | disposition home or self-care (01) ==
LOC: M ED 03:04
DX: S76.011A Strain of muscle, fascia and tendon of right hip, initial encounter (principal); W00.0XXA Fall on same level due to ice and snow, initial encounter; Y92.018 Other place in single-family (private) house as the place of occurrence of the external cause; I10 Essential (primary) hypertension; G47.30 Sleep apnea, unspecified; Z79.899 Other long term (current) drug therapy

== ENCOUNTER 2020-03-07 10:02 | Emergency (ER) | payer OTHER ==
[~2020-03-07] VITALS: Ht 172.7 cm; Wt 137.7 kg
[2020-03-07] MEDS ORDERED: KETOROLAC 60MG 2ML VIAL IM ONE (11:00)
[2020-03-07 11:24] VITALS: BP 174/90
[2020-03-07] MEDS ORDERED: POLYTRIM OPTH DROPS 10ML OS SCH (12:00)
== END 2020-03-07 11:29 | disposition home or self-care (01) ==
LOC: M ED 10:02
DX: H11.32 Conjunctival hemorrhage, left eye (principal); M25.511 Pain in right shoulder
CPT/HCPCS: 96360; 96372; 99283; J1885

== ENCOUNTER → 2020-10-12 | Outpatient (CLI) | payer SELFPAY ==
[~2020-10-12] MED LIST changes: -AMLO10TA5 PO; +AMLO1TAB25 PO
== END ==
LOC: M LABSMTC 10:39
PROVIDERS: ATTEND Pediatrics
DX: Z20.828 Contact with and (suspected) exposure to other viral communicable diseases (principal)

== ENCOUNTER → 2021-02-14 | Outpatient (CLI) | payer OTHER ==
[~2021-02-14] MED LIST changes: -LISI40TA PO; +LISI40TA4 PO
== END ==
LOC: M LABSMTC 09:49
PROVIDERS: ATTEND Pediatrics
DX: Z20.822 Contact with and (suspected) exposure to COVID-19 (principal)

== ENCOUNTER 2021-05-07 06:39 | Emergency (ER) | payer OTHER ==
[~2021-05-07] VITALS: Ht 170.2 cm; Wt 145.8 kg
[2021-05-07] MEDS ORDERED: ACETAMINOPHEN 325 MG TAB PO ONE (08:50)
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
[2021-05-07] MEDS ORDERED: lisinopriL 40 MG TAB PO ONE (09:35)
[2021-05-07] MEDS ORDERED: CARVedilol 12.5 MG TAB PO ONE (09:35)
[2021-05-07] MEDS ORDERED: FUROSEMIDE 20 MG TAB PO ONE (09:35)
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
[2021-05-07 10:45] VITALS: BP 171/96
== END 2021-05-07 11:30 | disposition home or self-care (01) ==
LOC: M ED 06:39
DX: S39.012A Strain of muscle, fascia and tendon of lower back, initial encounter (principal); V49.49XA Driver injured in collision with other motor vehicles in traffic accident, initial encounter; I10 Essential (primary) hypertension; R22.41 Localized swelling, mass and lump, right lower limb; Z79.899 Other long term (current) drug therapy; F17.210 Nicotine dependence, cigarettes, uncomplicated

== ENCOUNTER 2021-06-21 09:12 | Emergency (ER) | payer OTHER ==
[~2021-06-21] VITALS: Ht 172.7 cm; Wt 148.9 kg
[2021-06-21 11:27] VITALS: BP 167/84
== END 2021-06-21 11:32 | disposition home or self-care (01) ==
LOC: M ED 09:12
DX: M23.91 Unspecified internal derangement of right knee (principal); Z79.899 Other long term (current) drug therapy

== ENCOUNTER → 2023-09-01 | Outpatient (CLI) | payer OTHER, SELFPAY | LOC: M RAD 08:24 | PROVIDERS: ATTEND Physician Assistant | DX: S83.281D Other tear of lateral meniscus, current injury, right knee, subsequent encounter (principal); Y93.9 Activity, unspecified; Y92.9 Unspecified place or not applicable ==